=== PATIENT | female | born 1935 | race Caucasian/White ===

== ENCOUNTER 2016-07-14 05:11 | Emergency (ER) | payer MEDICARE | END 2016-07-14 07:34 | disposition home or self-care (01) | LOC: ED 05:11 | DX: S61.451A Open bite of right hand, initial encounter (principal); G35 Multiple sclerosis; J44.9 Chronic obstructive pulmonary disease, unspecified; K42.9 Umbilical hernia without obstruction or gangrene; Z87.891 Personal history of nicotine dependence; W54.0XXA Bitten by dog, initial encounter; Y93.9 Activity, unspecified; Y92.9 Unspecified place or not applicable ==

== ENCOUNTER 2016-07-20 08:37 | Emergency (ER) | payer MEDICARE | END 2016-07-20 09:27 | disposition home or self-care (01) | LOC: ED 08:37 | DX: S61.451D Open bite of right hand, subsequent encounter (principal); L03.113 Cellulitis of right upper limb; W54.0XXD Bitten by dog, subsequent encounter ==